=== PATIENT | female | born 1995 | race Caucasian/White ===

== ENCOUNTER 2019-07-09 08:06 | Emergency (ER) | payer OTHER ==
--- NOTE | 2019-07-09 08:59 | ED Physician Documentation ---
PD HPI HEADACHE - Stated complaint Stated Complaint: GUILLEN - Chief complaint Chief Complaint: Neuro - History obtained from History obtained from: Patient - History of Present Illness Timing - onset: How many days ago (4) Timing - duration: Days (4) Timing - details: Gradual onset, Still present, Waxing and waning Worst headache ever?: No: Worst headache ever? Location: Front Quality: Aching Associated symptoms: Nausea. No: Fever, Stiff neck, Vomiting, Vision changes Improved by: No: Rest, Meds (tylenol) Worsened by: No: Light, Noise Contributing factors: No: Hypertension, Recent illness, Trauma Similar symptoms before: No diagnosis (had some headaches during her first . No history of migraines per se.) Recently seen: Clinic (normal visit last week) Review of Systems Constitutional: denies: Fever, Myalgias Eyes: denies: Decreased vision, Photophobia Nose: reports: Sinus pressure / pain (some feeling of sinus pressure; no nasal drainage.). denies: Rhinorrhea / runny nose, Congestion Throat: denies: Sore throat Respiratory: denies: Cough GI: reports: Nausea. denies: Abdominal Pain, Vomiting, Diarrhea : denies: Dysuria, Discharge, Vaginal bleeding Musculoskeletal: denies: Neck pain, Back pain Neurologic: denies: Focal weakness, Numbness, Near syncope, Altered mental status PD PAST MEDICAL HISTORY - Past Medical History Cardiovascular: None Respiratory: None Neuro: None - Present Medications Home Medications: Ambulatory Orders Medication Instructions Recorded Confirmed Cetirizine [ZyrTEC] 10 mg PO DAILY #10 tablet 07/09/19 Hydrocodone/Acetaminophen [[place] 1 each PO Q6H PRN #10 tablet 07/09/19 5-325 Tablet] Naproxen 375 mg PO BID #14 tablet 07/09/19 Ondansetron Odt [Zofran] 4 mg TL Q6H PRN #10 tablet 07/09/19 dexAMETHasone [Decadron] 4 mg PO DAILY #5 tablet 07/09/19 - Allergies Allergies/Adverse Reactions: Allergies Allergy/AdvReac Type Severity Reaction Status Date / Time No Known Drug Allergies Allergy Verified 07/09/19 08:23 - Social History Does the pt smoke?: No Smoking Status: Never smoker Does the pt drink ETOH?: No Does the pt have substance abuse?: No PD ED PE NORMAL - Vitals Vital signs reviewed: Yes - General General: Alert and oriented X 3, No acute distress, Well developed/nourished - HEENT HEENT: Atraumatic, PERRL, EOMI, Ears normal, Pharynx benign - Neck Neck: Supple, no meningeal sign, No adenopathy - Cardiac Cardiac: RRR, No murmur - Respiratory Respiratory: Clear bilaterally - Abdomen Abdomen: Soft, Non tender - Derm Derm: Normal color, Warm and dry - Extremities Extremities: Normal ROM s pain - Neuro Neuro: Alert and oriented X 3, crosscutter 2-12 intact, No motor deficit, No sensory deficit, Normal speech Eye Opening: Spontaneous Motor: Obeys Commands Verbal: Oriented GCS Score: 15 Results - Vitals Vitals: Vital Signs - 24 hr 07/09/19 07/09/19 07/09/19 08:23 10:39 12:35 Temperature 37.1 C 37.0 C Heart Rate 108 H 94 104 H Respiratory 16 18 15 Rate Blood Pressure 132/78 H 111/71 119/76 O2 Saturation 98 99 97 Oxygen O2 Source Room air - Labs Labs: Laboratory Tests 07/09/19 07/09/19 07/09/19 10:20 10:20 11:00 WBC 7.2 RBC 4.05 L Hgb 11.7 L Hct 35.9 L MCV 88.6 MCH 28.9 MCHC 32.6 RDW 13.6 Plt Count 188 MPV 10.5 Neut # (Auto) 5.0 Lymph # (Auto) 1.5 [place] # (Auto) 0.5 Eos # (Auto) 0.2 Baso # (Auto) 0.0 Absolute Nucleated RBC 0.00 Nucleated RBC % 0.0 Sodium 136 Potassium 3.7 Chloride 106 Carbon Dioxide 22 Anion Gap 8.0 BUN 10 Creatinine 0.4 Estimated GFR (MDRD) 200 Glucose 90 POC Whole Bld Glucose Calcium 8.8 Total Bilirubin 0.5 AST 16 ALT 12 Alkaline Phosphatase 62 Total Protein 6.4 L Albumin 3.0 L Globulin 3.4 Albumin/Globulin Ratio 0.9 L Lipase 29 Urine Color YELLOW Urine Clarity CLEAR Urine pH 7.0 Ur Specific [place] 1.015 Urine Protein NEGATIVE Urine Glucose (UA) NEGATIVE Urine Ketones NEGATIVE Urine Occult Blood NEGATIVE Urine Nitrite NEGATIVE Urine Bilirubin NEGATIVE Urine Urobilinogen 0.2 (NORMAL) Ur Leukocyte Esterase NEGATIVE Ur Microscopic Review NOT INDICATED Urine Culture Comments NOT INDICATED 07/09/19 11:06 WBC RBC Hgb Hct MCV MCH MCHC RDW Plt Count MPV Neut # (Auto) Lymph # (Auto) [place] # (Auto) Eos # (Auto) Baso # (Auto) Absolute Nucleated RBC Nucleated RBC % Sodium Potassium Chloride Carbon Dioxide Anion Gap BUN Creatinine Estimated GFR (MDRD) Glucose POC Whole Bld Glucose 78 Calcium Total Bilirubin AST ALT Alkaline Phosphatase Total Protein Albumin Globulin Albumin/Globulin Ratio Lipase Urine Color Urine Clarity Urine pH Ur Specific [place] Urine Protein Urine Glucose (UA) Urine Ketones Urine Occult Blood Urine Nitrite Urine Bilirubin Urine Urobilinogen Ur Leukocyte Esterase Ur Microscopic Review Urine Culture Comments PD MEDICAL DECISION MAKING - ED course Complexity details: re-evaluated patient (Only mild improvement with Phenergan and Toradol, but still consider migraine. Otherwise possible sinus. At this point in , could still do NSAIDs for short period as well as pain meds. ), considered differential (no focal neuro deficits, no fever, symptoms mainly frontal sinus area. She is at 28 weeks gestation, so will check LFTs, [place]. Has normal BP on recheck. ), d/w patient Departure - Departure Disposition: 01 Home, Self Care Clinical Impression: Frontal headache Condition: Stable Record reviewed to determine appropriate education?: Yes Instructions: ED Cephalgia Unspecified Follow-Up: LILIYA OAKLEY MD [Primary Care Provider] - Prescriptions: Cetirizine [ZyrTEC] 10 mg PO DAILY #10 tablet dexAMETHasone [Decadron] 4 mg PO DAILY #5 tablet Hydrocodone/Acetaminophen [[place] 5-325 Tablet] 1 each PO Q6H PRN #10 tablet PRN Reason: Pain Naproxen 375 mg PO BID #14 tablet Ondansetron Odt [Zofran] 4 mg TL Q6H PRN #10 tablet PRN Reason: Nausea / Vomiting Comments: I do not get the sense of a more serious cause for this. We will see if this is a sinus headache and treated with some anti-inflammatories and antihistamine. Stay well-hydrated and use ondansetron if needed for nausea. Add Tylenol or hydrocodone if needed for pain in the short-term. Follow-up with your primary care if not improved over the next few days and return sooner if worsening or other symptoms associated. Discharge Date/Time: 07/09/19 12:36
[2019-07-09] MEDS ORDERED: KETOROLAC 15 MG/ML VIAL IVP STA (09:34)
[2019-07-09] MEDS ORDERED: DEXAMETHASONE 10 MG/ML VIAL IVP STA (09:34)
[2019-07-09] MEDS ORDERED: CETIRIZINE 10 MG TABLET PO STA (09:34)
[2019-07-09] MEDS ORDERED: PROMETHAZINE INJ 6.25 MG in SODIUM CHLORIDE 0.9% 50 ML IV STA (09:35)
[2019-07-09 10:41] LABS: BASOPHILS % (AUTO) 0.3 %; EOSINOPHILS # (AUTO) 0.2 10^3/uL (0.0-0.7); EOSINOPHILS % (AUTO) 2.5 %; HGB - HEMOGLOBIN 11.7 g/dL (12.0-16.0); LYMPHOCYTES # (AUTO) 1.5 10^3/uL (1.5-3.5); LYMPHOCYTES % (AUTO) 20.7 %; MEAN CORPUSCULAR HEMOGLOBIN 28.9 pg (27.0-31.0); MEAN CORPUSCULAR HGB CONC 32.6 g/dL (32.0-36.0); MEAN CORPUSCULAR VOLUME 88.6 fL (81.0-99.0); MEAN PLATELET VOLUME 10.5 fL (7.9-10.8); MONOCYTES # (AUTO) 0.5 10^3/uL (0.0-1.0); MONOCYTES % (AUTO) 6.9 %; NEUTROPHILS % (AUTO) 68.8 %; PLT - PLATELET COUNT 188 10^3/uL (130-450); RED BLOOD COUNT 4.05 10^6/uL (4.20-5.40); RED CELL DISTRIBUTION WIDTH 13.6 % (12.0-15.0); WHITE BLOOD COUNT 7.2 x10^3/uL (4.8-10.8)
[2019-07-09 10:55] LABS: ALBUMIN/GLOBULIN RATIO 0.9 (1.0-2.2); BILIRUBIN,TOTAL 0.5 mg/dL (0.2-1.0); CALCIUM 8.8 mg/dL (8.5-10.3); CREATININE 0.4 mg/dL (0.4-1.0); TOTAL PROTEIN 6.4 g/dL (6.7-8.2)
[2019-07-09 11:19] LABS: BILIRUBIN,URINE NEGATIVE (NEGATIVE); GLUCOSE, URINE (UA) NEGATIVE (NEGATIVE); KETONES,URINE (UA) NEGATIVE (NEGATIVE); LEUKOCYTE ESTERASE, URINE NEGATIVE (NEGATIVE); NITRITE,URINE NEGATIVE (NEGATIVE); OCCULT BLOOD,URINE NEGATIVE (NEGATIVE); PROTEIN,URINE NEGATIVE (NEGATIVE); UROBILINOGEN,URINE 0.2 (NORMAL) E.U./dL (NORMAL)
[2019-07-09] MEDS ORDERED: ACETAMINOPHEN 1,000 MG/100 ML 100 ML IV STA (11:19)
[2019-07-09] MEDS ORDERED: SODIUM CHLORIDE 0.9% 1,000 ML IV ONE (11:19)
[2019-07-09 11:21] LABS: CLARITY,URINE CLEAR (CLEAR)
[2019-07-09 12:36] VITALS: BP 119/76
--- NOTE | 2019-07-09 20:39 | PROCEDURE REPORT ---
- HPI Diagnosis/Indication for NST: Other (Seen in ED) Current EDU 09/26/19 Gestation 28 Weeks and 5 Days 2 Para 1 Vital Signs Temperature 98.7 F 07/09/19 08:23 Heart Rate 108 H 07/09/19 08:23 Respiratory Rate 16 07/09/19 08:23 Blood Pressure 132/78 H 07/09/19 08:23 O2 Saturation 98 07/09/19 08:23 Temperature 98.6 F 07/09/19 12:35 Heart Rate 104 H 07/09/19 12:35 Respiratory Rate 15 07/09/19 12:35 Blood Pressure 119/76 07/09/19 12:35 O2 Saturation 97 07/09/19 12:35 - NST Procedure NST Procedure Start Date 07/09/19 Start Time 08:40 Stop Time 09:02 Vibroacoustic Stimulation Used No Patient States Movement Yes EFM 145 mod [place] 10x10 accels no decels TOCO: quiet - Results and Plan Findings/Impression: Appropriate for gestational age Plan: Presented to ED NST performed to assess well being Monitoring AGA Discharge per ED assessment
== END 2019-07-09 12:36 | disposition home or self-care (01) ==
LOC: ED 08:06
DX: O99.89 Other specified diseases and conditions complicating pregnancy, childbirth and the puerperium (principal); R51 Headache; Z3A.28 28 weeks gestation of pregnancy
CPT/HCPCS: 36415; 80053; 81003; 83690; 85025; 96365; 96367; 96375; 99284; 99285; A9270; J0131; J7040; 81001; 87086

== ENCOUNTER 2019-08-26 08:31 | Outpatient (CLI) | payer OTHER ==
[2019-08-26 08:53] VITALS: BP 125/79
[2019-08-26 09:18] LABS: BASOPHILS % (AUTO) 0.5 %; EOSINOPHILS # (AUTO) 0.2 10^3/uL (0.0-0.7); EOSINOPHILS % (AUTO) 1.8 %; HGB - HEMOGLOBIN 11.7 g/dL (12.0-16.0); LYMPHOCYTES % (AUTO) 23.4 %; MEAN CORPUSCULAR HEMOGLOBIN 26.8 pg (27.0-31.0); MEAN CORPUSCULAR HGB CONC 31.5 g/dL (32.0-36.0); MEAN CORPUSCULAR VOLUME 85.1 fL (81.0-99.0); MEAN PLATELET VOLUME 10.6 fL (7.9-10.8); MONOCYTES # (AUTO) 0.5 10^3/uL (0.0-1.0); MONOCYTES % (AUTO) 6.2 %; NEUTROPHILS # (AUTO) 5.6 10^3/uL (1.5-6.6); NEUTROPHILS % (AUTO) 67.1 %; PLT - PLATELET COUNT 174 10^3/uL (130-450); RED BLOOD COUNT 4.36 10^6/uL (4.20-5.40); RED CELL DISTRIBUTION WIDTH 14.5 % (12.0-15.0); WHITE BLOOD COUNT 8.4 x10^3/uL (4.8-10.8)
[2019-08-26 09:27] LABS: BILIRUBIN,URINE NEGATIVE (NEGATIVE); GLUCOSE, URINE (UA) NEGATIVE (NEGATIVE); KETONES,URINE (UA) NEGATIVE (NEGATIVE); LEUKOCYTE ESTERASE, URINE NEGATIVE (NEGATIVE); NITRITE,URINE NEGATIVE (NEGATIVE); OCCULT BLOOD,URINE NEGATIVE (NEGATIVE); PROTEIN,URINE NEGATIVE (NEGATIVE); UROBILINOGEN,URINE 0.2 (NORMAL) E.U./dL (NORMAL)
[2019-08-26 09:31] LABS: CLARITY,URINE CLEAR (CLEAR)
[2019-08-26] MEDS ORDERED: MAG HYDROX/AL HYDROX/SIMETH 30 ML UDC PO PRN (09:32)
[2019-08-26] MEDS ORDERED: ACETAMINOPHEN 500 MG TABLET PO PRN (09:38)
[2019-08-26 09:41] LABS: BACTERIA,URINE Rare /HPF (None Seen); MUCUS,URINE Few Strands; RBC,URINE 0-5 /HPF (0-5); SQUAMOUS EPITHELIAL CELL,UR FEW Squamous (<= Few)
--- NOTE | 2019-08-26 09:55 | PROCEDURE REPORT ---
- HPI Diagnosis/Indication for NST: Other (pupper abdominal pain) Current EDU 09/26/19 Gestation 35 Weeks and 4 Days 2 Para 1 Vital Signs Temperature 36.5 C 08/26/19 08:45 Heart Rate 127 H 08/26/19 08:45 Respiratory Rate 08/26/19 08:45 Blood Pressure 125/79 08/26/19 08:45 O2 Saturation 100 08/26/19 08:45 Temperature 36.5 C 08/26/19 08:45 Heart Rate 127 H 08/26/19 08:45 Respiratory Rate 08/26/19 08:45 Blood Pressure 125/79 08/26/19 08:45 O2 Saturation 100 08/26/19 08:45 - NST Procedure NST Procedure Start Time 08:40 Stop Time 09:02 - Results and Plan Findings/Impression: baseline 130 reactive no contractions Plan: continue NST's
--- NOTE | 2019-08-28 11:57 | PREOP HISTORY & PHYSICAL ---
DATE OF SERVICE: Physician: Joce Myers MD IDENTIFICATION: The patient is a 23-year-old G2, P1 female who is 35.4 weeks EGA. She has had a pre vious section. CHIEF COMPLAINT: Upper abdominal pain and lower abdominal pain as well as headache. HISTORY OF PRESENT ILLNESS: The patient states at 11:30 last night, she developed upper abdominal pa in. This was constant and crampy in nature. She is having good bowel motion. She denied diarrhea. She has had some low-grade nausea, which she has had through her entire . She has some occ ipital headache, which she states she has had intermittently through her entire . She denie s any spots in front of her eyes or scotoma. She denies any relationship to diet to her upper abdomi nal pain. She also has some pain in the lower abdomen in the suprapubic region. She has had a previ ous section. She denies any pain or burning on urination. PAST MEDICAL HISTORY: Unremarkable. PAST SURGICAL HISTORY: Positive for section x1. She has also had a tonsillectomy and wisdo m teeth removed. ALLERGIES: NONE KNOWN. CURRENT MEDICATIONS: vitamins. HABITS: The patient denies use of alcohol, tobacco, street or addictive drugs. 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 PHYSICAL EXAMINATION: GENERAL: The patient is a well-developed, well-nourished white female. She appears to be in no acut e distress at this time. She converses easily. She smiles appropriately. HEENT: Pupils are equal and round. Extraocular muscles are intact. Thyroid is not palpably enlarge d. HEART: Regular rate and rhythm without murmurs. LUNGS: Lung mitchell are clear without rales or wheezes. BACK: No spinal or CVA tenderness noted. ABDOMEN: Nontender throughout, above the uterus, the uterus, as well as the suprapubic area. She do es note that there is pain right below the xiphoid as well as the suprapubic area, but denies tendern ess associated with this. LABORATORY DATA: White count 8.4, hemoglobin 11.7, hematocrit 37.8, platelets 174. Urine is complet ellie negative at this time. She has few squamous. She is negative for nitrites or leukocytes. IMPRESSION: 1. A 23-year-old 2, para 1, 35.4 weeks with previous section. 2. Abdominal pain of unknown etiology. We will try Maalox on her to see if this does not improve he r pain at this time. In view of the fact that her blood pressures were normal and that she has no vi sual difficulty, my impression is that this is not preeclampsia. No signs of abruption. PLAN: At this point, we will allow the patient to go home. We will have her continue on her antidia betic diet and have her follow up in the clinic as routine. TD: 08/26/2019 09:49
== END 2019-08-26 10:32 | disposition home or self-care (01) ==
LOC: FBP 08:31 → WFO 08:31
PROVIDERS: ATTEND Obstetrics & Gynecology
DX: R51 Headache (principal); Z3A.35 35 weeks gestation of pregnancy
CPT/HCPCS: 36415; 81001; 85025; 99213; A9270; 87086

== ENCOUNTER 2019-08-31 08:00 | Outpatient (CLI) | payer OTHER ==
[2019-09-01 20:50] LABS: TRICHOMONAS VAGINALIS DNA NEGATIVE (NEGATIVE)
== END 2019-08-31 23:59 | disposition home or self-care (01) ==
LOC: LAB.R 08:00
PROVIDERS: ATTEND Obstetrics & Gynecology
DX: Z36.85 Encounter for antenatal screening for Streptococcus B (principal)
CPT/HCPCS: 87491; 87591; 87661; 87797

== ENCOUNTER 2019-09-04 16:07 | Outpatient (CLI) | payer OTHER ==
--- NOTE | 2019-09-06 00:33 | Ultrasound Report ---
Reason: GESTATIONAL DIABETES Procedure Date: 09/04/2019 Accession Number: [id number] / [id number] Procedure: US - OB F/U or Repeat CPT Code: Final Report FULL RESULT: EXAM: LIMITED OBSTETRICAL ULTRASOUND EXAM DATE: 09/04/2019 04:31 PM. CLINICAL HISTORY: Gestational diabetes. growth assessment. COMPARISON: None. TECHNIQUE: Real-time sonographic evaluation of the fetus performed by the casting and pasting supervisor. Multiple sales representative supervisor static images were saved for review. DATING: Established EGA 36 weeks 6 days with MELLISSA 09/25/2019. GENERAL EVALUATION Barron . Cardiac activity: 162 beats per minute. movement: Visualized. Presentation: Cephalic. Placenta: Posterior position. Amniotic fluid: Normal. SHAZIA 16 cm. MVP 4.7 cm. BPD: 9.5 cm, 38 weeks 4 days HC: 33.5 cm, 38 weeks 3 days AC: 30.6 cm, 34 weeks 4 days FL: 7.1 cm, 36 weeks 3 days EFW: 2784 grams EFW%: 28.7 AUA: 37 weeks 0 days MELLISSA: 09/25/2019 IMPRESSION: 1. Barron live intrauterine with gestational age 37 weeks 0 days. This is concordant with prior established due date. 2. Normal SHAZIA. RADIA
== END 2019-09-04 16:08 | disposition home or self-care (01) ==
LOC: DI 16:07
PROVIDERS: ATTEND Obstetrics & Gynecology
DX: O24.419 Gestational diabetes mellitus in pregnancy, unspecified control (principal); O34.211 Maternal care for low transverse scar from previous cesarean delivery; Z3A.37 37 weeks gestation of pregnancy
CPT/HCPCS: 76816

== ENCOUNTER 2019-09-15 19:11 | Outpatient (CLI) | payer OTHER ==
[2019-09-15 20:07] VITALS: BP 126/77
--- NOTE | 2019-09-16 20:44 | PROCEDURE REPORT ---
- HPI Diagnosis/Indication for NST: Other (contractions) Current EDU 09/26/19 Gestation 38 Weeks and 3 Days 2 Para 1 Vital Signs Temperature 97.2 F L 09/15/19 19:24 Heart Rate 97 09/15/19 19:24 Respiratory Rate 16 09/15/19 19:24 Blood Pressure 126/83 H 09/15/19 19:24 O2 Saturation 99 09/15/19 19:24 Temperature 97.2 F L 09/15/19 19:24 Heart Rate 97 09/15/19 20:00 Respiratory Rate 18 09/15/19 20:00 Blood Pressure 126/77 09/15/19 20:00 O2 Saturation 99 09/15/19 19:24 - NST Procedure NST Procedure Start Date 09/15/19 Start Time 19:17 Stop Time 20:15 Vibroacoustic Stimulation Used No Patient States Movement Yes - Results and Plan Findings/Impression: Category 1 NST Rare UC SVE unchanged over 2h.
== END 2019-09-15 22:20 | disposition home or self-care (01) ==
LOC: WFO 19:11 → FBP 19:13 → WFO 22:20
PROVIDERS: ATTEND Obstetrics & Gynecology
DX: O47.1 False labor at or after 37 completed weeks of gestation (principal); Z3A.38 38 weeks gestation of pregnancy
CPT/HCPCS: 59025; 99213

== ENCOUNTER 2019-09-22 11:21 | Outpatient (CLI) | payer OTHER ==
[2019-09-22 11:44] LABS: BASOPHILS % (AUTO) 0.5 %; EOSINOPHILS # (AUTO) 0.1 10^3/uL (0.0-0.7); EOSINOPHILS % (AUTO) 1.6 %; HGB - HEMOGLOBIN 11.1 g/dL (12.0-16.0); LYMPHOCYTES # (AUTO) 2.2 10^3/uL (1.5-3.5); LYMPHOCYTES % (AUTO) 27.2 %; MEAN CORPUSCULAR HEMOGLOBIN 25.6 pg (27.0-31.0); MEAN CORPUSCULAR HGB CONC 30.2 g/dL (32.0-36.0); MEAN CORPUSCULAR VOLUME 84.6 fL (81.0-99.0); MEAN PLATELET VOLUME 10.8 fL (7.9-10.8); MONOCYTES # (AUTO) 0.5 10^3/uL (0.0-1.0); MONOCYTES % (AUTO) 6.7 %; NEUTROPHILS # (AUTO) 5.2 10^3/uL (1.5-6.6); NEUTROPHILS % (AUTO) 63.4 %; PLT - PLATELET COUNT 182 10^3/uL (130-450); RED BLOOD COUNT 4.34 10^6/uL (4.20-5.40); RED CELL DISTRIBUTION WIDTH 14.6 % (12.0-15.0); WHITE BLOOD COUNT 8.1 x10^3/uL (4.8-10.8)
== END 2019-09-22 11:22 | disposition home or self-care (01) ==
LOC: LAB 11:21
PROVIDERS: ATTEND Obstetrics & Gynecology
DX: Z01.812 Encounter for preprocedural laboratory examination (principal); O34.211 Maternal care for low transverse scar from previous cesarean delivery; Z3A.00 Weeks of gestation of pregnancy not specified
CPT/HCPCS: 36415; 85025

== ENCOUNTER 2019-09-23 06:59 | Inpatient (IN) | payer OTHER ==
[2019-09-23] MEDS ORDERED: LACTATED RINGERS 1,000 ML IV ONE ×4 (07:54→11:00)
[2019-09-23 08:24] LABS: BASOPHILS % (AUTO) 0.4 %; EOSINOPHILS # (AUTO) 0.1 10^3/uL (0.0-0.7); EOSINOPHILS % (AUTO) 1.8 %; HGB - HEMOGLOBIN 11.8 g/dL (12.0-16.0); LYMPHOCYTES # (AUTO) 2.3 10^3/uL (1.5-3.5); LYMPHOCYTES % (AUTO) 30.8 %; MEAN CORPUSCULAR HGB CONC 31.8 g/dL (32.0-36.0); MEAN CORPUSCULAR VOLUME 84.9 fL (81.0-99.0); MEAN PLATELET VOLUME 11.7 fL (7.9-10.8); MONOCYTES # (AUTO) 0.6 10^3/uL (0.0-1.0); MONOCYTES % (AUTO) 7.6 %; NEUTROPHILS # (AUTO) 4.4 10^3/uL (1.5-6.6); NEUTROPHILS % (AUTO) 58.6 %; PLT - PLATELET COUNT 188 10^3/uL (130-450); RED BLOOD COUNT 4.37 10^6/uL (4.20-5.40); RED CELL DISTRIBUTION WIDTH 14.6 % (12.0-15.0); WHITE BLOOD COUNT 7.6 x10^3/uL (4.8-10.8)
[2019-09-23] MEDS ORDERED: ceFAZolin 2 GM in SODIUM CHLORIDE 0.9% 100ML 100 ML IV ONE (08:30)
--- NOTE | 2019-09-23 09:07 | ANESTHESIA ---
Pre-Anesthesia VS, & Labs - Diagnosis Previous C section - Procedure Repeat C section Vital Signs: Temp Pulse Resp BP Pulse Ox 36.8 C 105 H 16 115/74 100 09/23/19 08:00 09/23/19 08:00 09/23/19 08:00 09/23/19 08:00 09/23/19 08:00 Height 5 ft 7 in Weight (kg) 90.265 kg Body Mass Index 29.1 - NPO >8 hours - Is Patient ?: Yes - Lab Results Current Lab Results: Laboratory Tests 09/23/19 08:38: POC Whole Bld Glucose 71 09/23/19 07:47: WBC 7.6, RBC 4.37, Hgb 11.8 L, Hct 37.1, MCV 84.9, MCH 27.0, MCHC 31.8 L, RDW 14.6, Plt Count 188, MPV 11.7 H, Neut # (Auto) 4.4, Lymph # (Auto) 2.3, [place] # (Auto) 0.6, Eos # (Auto) 0.1, Baso # (Auto) 0.0, Absolute Nucleated RBC 0.00, Nucleated RBC % 0.0 Fish Bones: 09/23/19 07:47 Home Medications and Allergies Allergies/Adverse Reactions: Allergies Allergy/AdvReac Type Severity Reaction Status Date / Time No Known Drug Allergies Allergy Verified 07/09/19 08:23 Anes History & Medical History - Anesthetic History Anesthesia Complications: reports: No previous complications Family history of Anesthesia Complications: Denies Family history of Malignant Hyperthermia: Denies - Medical History Cardiovascular: reports: None Pulmonary: reports: None Gastrointestinal: reports: Other ( induced acid reflux) Urinary: reports: None Neuro: reports: None Musculoskeletal: reports: None Endocrine/Autoimmune: reports: Other (Gestational diabetes) Blood Disorders: reports: None Skin: reports: Other (Acne) Smoking Status: Never smoker Psychosocial: reports: No issues indicated Exam General: Alert, Oriented x3, Cooperative Dental: WNL Mouth Opening: Greater than 4 Fingerbreadths Neck Mobility: Normal Mallampati classification: I Thyromental Distance: greater than 6 cm Neurological: Normal speech Mental/Cognitive Status: Alert/Oriented X3 Cognitive Status: Within normal limits Plan Anesthesia Type: Spinal Consent for Procedure(s) Verified and Reviewed: Yes Code Status: Attempt Resuscitation ASA classification: 2-Mild systemic disease Is this case an emergency?: No
[2019-09-23] MEDS ORDERED: OXYTOCIN 10 UNIT/ML VIAL ONE (10:19)
[2019-09-23] MEDS ORDERED: SODIUM CHLORIDE 0.9% MINIBAG 100 ML IV ONE (10:19)
[2019-09-23] MEDS ORDERED: CITRIC ACID/SODIUM CITRATE 15 ML UDC PO ONE (10:32)
[2019-09-23] MEDS ORDERED: BUPIVACAINE 0.25% PF 30 ML VIAL SUBQ ONE (11:41)
[2019-09-23] MEDS ORDERED: BUPIVACAINE 0.25% PF 30 ML VIAL ONE (11:43)
[2019-09-23] MEDS ORDERED: SODIUM CHLORIDE FLUSH 0.9% 10 ML SYRINGE IVP PRN (12:03)
[2019-09-23] MEDS ORDERED: CARBOPROST TROMETHAMINE 250 MCG/ML AMP IM ONE (12:03)
[2019-09-23] MEDS ORDERED: oxyCODONE 5 MG TABLET PO PRN (12:03)
[2019-09-23] MEDS ORDERED: ONDANSETRON 4 MG/2 ML VIAL IVP PRN (12:03)
[2019-09-23] MEDS ORDERED: METHYLERGONOVINE 0.2 MG/ML AMP IM PRN (12:03)
[2019-09-23] MEDS ORDERED: OXYTOCIN/SODIUM CHLORIDE 500 ML IV PRN (12:03)
[2019-09-23] MEDS ORDERED: diphenhydrAMINE 25 MG CAPSULE PO PRN (12:03)
--- NOTE | 2019-09-23 12:11 | OPERATIVE REPORT ---
Operative Report - General Admit Date: 09/23/19 Procedure Date: 09/23/19 Planned Procedure: RLTC/S Procedure Performed: RLTC/S Post Op Diagnosis: 39 weeks - Procedure Note Primary Surgeon: Joce Myers MD Secondary Surgeon: Paul Johnson MD Anesthesia Provider: Brigido Loo CRNA Anesthesia Technique: Spinal IV Fluids (mL): 1,100 Estimated Blood Loss (mL): 600 Urine Output (mL): 50 Complications: None
--- NOTE | 2019-09-23 13:18 | OPERATIVE REPORT ---
DATE OF SERVICE: 09/23/2019 Physician: Joce Myers MD PREOPERATIVE DIAGNOSES 1. 39 weeks. 2. Previous section. POSTOPERATIVE DIAGNOSES 1. 39 weeks. 2. Previous section. PROCEDURE: Repeat low transverse section. SURGEON: Joce Myers MD MARZIPAN MAKER: Helga Johnson MD ANESTHESIA PROVIDER: Demetrice Loo CRNA. ANESTHETIC: Spinal. ESTIMATED BLOOD LOSS: 600 mL IV FLUIDS: 1200 mL URINE OUTPUT: 50 mL FINDINGS: Upon entering the abdominal cavity, there was evidence of a live infant who was vertex pre sentation. Amniotic fluid was clear. Tubes and ovaries appeared to be free of any disease. PROCEDURE IN DETAIL: Following adequate spinal anesthesia, patient was placed in supine position wit h a roll under the right hip. At this point, a Villeda catheter was placed under sterile conditions. She was then prepped and draped in the usual fashion. Timeout was then performed, at which time the patient was identified, and concerns addressed. The procedure was then commenced. At this time, a # 10 blade was used to incise over the previous Pfannenstiel incision, carried down to the fascia. The fascia was incised transversely then using both blunt and sharp dissection was freed from rectus abd ominis. Hemostasis was accomplished on the way and using electrocautery. The peritoneum was entered high. Care was taken to avoid any injury to bowel or bladder. The incision was carried inferiorly. Then, utilizing Metzenbaum scissors, bladder flap was then developed using both blunt and sharp dis section. At this point, a low transverse uterine incision was accomplished using a #10 blade, bandag e scissors and finger spread technique. The head of the infant was noted to be left transverse, it w as lifted out of the pelvis. The oropharynx was bulb suctioned. There was a simple nuchal cord, whi ch was reduced. At this time, the remainder of the was delivered without difficulty. The inf ant cried and was vigorous at this time. The cord was doubly clamped, divided, and the infant was stevenson nded to the nursery team that was standing by. Cord blood samples were obtained and sent for evaluat ion. At this point, the placenta was manually delivered. The uterus was exteriorized, wrapped in a moist lap and cleansed the internal portion with dry lap. There was no evidence of any retained plac ental or amniotic tissues. The incision was then closed using a running locking suture with #0 Vicry l with an imbricating layer of #0 Vicryl. Good hemostasis was observed. The uterus was tipped forwa rd and the cul-de-sac was suctioned clear of any clot. The estimated blood loss was then ascertained at this time at 600 mL. The cul-de-sac was irrigated with copious amounts of sterile saline and the uterus was delivered back in the abdominal cavity. The gutters were likewise irrigated with saline. The incision was reinspected. There was no evidence of any bleeding. The peritoneum was closed ut ilizing 2-0 Vicryl. The rectus was reapproximated with [id number] of #0 Vicryl. The rectus wa s inspected for bleeding and treated with electrocautery. There was an area of bleeding in the linea alba superiorly. This was treated with electrocautery and there was evidence of good hemostasis. T he fascia was then closed utilizing looped PDS in a running fashion. Subcutaneous tissue was closed utilizing 2-0 Vicryl and the incision itself was closed using 4-0 Monocryl subcuticular. Wound VAC w as then placed without difficulty. The uterus was then expressed and there was no further blood or c lot noted. Sponge and needle counts were correct at this point. Dr. Johnson was intimately involve d in the procedure with retraction, suture ligation, as well as discussion throughout the case. TD: 09/23/2019 12:21
--- NOTE | 2019-09-23 13:19 | Labor Flowsheet ---
Labor Flowsheet Datetime Report Generated by CPN: 09/23/2019 13:19 Datetime: 09/23/2019 07:28 Pulse: 105 SpO2 (%): 100 Datetime: 09/23/2019 07:21 VITAL SIGNS NBP Sys/[place]/Mean (mmHg): 115 : 74 : 82
[2019-09-23] MEDS: ACETAMINOPHEN 500 MG TABLET PO SCH ×2 (13:57→22:40)
[2019-09-23] MEDS: SIMETHICONE CHEW 80 MG TABLET PO SCH ×2 (15:08→22:40)
[2019-09-23] MEDS: LACTATED RINGERS 1,000 ML IV SCH (15:09)
[2019-09-23] MEDS: SODIUM CHLORIDE FLUSH 0.9% 10 ML SYRINGE IVP SCH (18:29)
[2019-09-23] MEDS: KETOROLAC 30 MG/ML VIAL IVP SCH (18:29)
[2019-09-23] MEDS: DOCUSATE SODIUM 100 MG CAPSULE PO SCH (22:40)
[2019-09-24] MEDS: KETOROLAC 30 MG/ML VIAL IVP SCH ×3 (00:42→14:03)
[2019-09-24] MEDS: SODIUM CHLORIDE FLUSH 0.9% 10 ML SYRINGE IVP SCH ×3 (00:42→14:09)
[2019-09-24 05:53] LABS: BASOPHILS % (AUTO) 0.4 %; EOSINOPHILS # (AUTO) 0.3 10^3/uL (0.0-0.7); LYMPHOCYTES # (AUTO) 2.4 10^3/uL (1.5-3.5); LYMPHOCYTES % (AUTO) 25.2 %; MEAN CORPUSCULAR HEMOGLOBIN 27.3 pg (27.0-31.0); MEAN CORPUSCULAR HGB CONC 30.5 g/dL (32.0-36.0); MEAN CORPUSCULAR VOLUME 89.6 fL (81.0-99.0); MONOCYTES # (AUTO) 0.8 10^3/uL (0.0-1.0); MONOCYTES % (AUTO) 8.5 %; NEUTROPHILS # (AUTO) 5.8 10^3/uL (1.5-6.6); NEUTROPHILS % (AUTO) 62.2 %; PLT - PLATELET COUNT 161 10^3/uL (130-450); RED BLOOD COUNT 4.03 10^6/uL (4.20-5.40); RED CELL DISTRIBUTION WIDTH 14.9 % (12.0-15.0); WHITE BLOOD COUNT 9.4 x10^3/uL (4.8-10.8)
[2019-09-24] MEDS: ACETAMINOPHEN 500 MG TABLET PO SCH ×3 (06:40→22:39)
[2019-09-24] MEDS: SIMETHICONE CHEW 80 MG TABLET PO SCH ×3 (10:16→17:02)
[2019-09-24] MEDS: DOCUSATE SODIUM 100 MG CAPSULE PO SCH (10:16)
--- NOTE | 2019-09-24 13:05 | PROVIDER PROGRESS NOTE ---
Subjective - General Admit Date: 09/23/19 Procedure Date: 09/23/19 Post Op Days: 1 Procedure Performed: RLTC/S - Review of Systems Wound/Incisions: positive: Dressing dry and intact General: positive: No symptoms (Pain 2/10, pasing flatus) Gastrointestinal: positive: Flatus Objective - Patient Data Reviewed Vital Signs: Yes Vital Signs: Vital Signs x48h Temp Pulse Resp BP Pulse Ox 09/24/19 05:19 36.4 C L 69 18 116/79 98 Weight: Weight 09/22/19 09/23/19 09/24/19 23:59 23:59 23:59 Weight (kg) 90.265 kg Intake & Output: Intake and Output Totals x24h 09/22/19 09/23/19 09/24/19 23:59 23:59 23:59 Intake Total 775 1000 Output Total 2415 1625 Balance -1640 -625 - Lab Results Lab Results: 09/24/19 05:25 Other Lab Results: Lab Results x24hrs 09/24/19 Range/Units 05:25 WBC 9.4 (4.8-10.8) x10^3/uL RBC 4.03 L (4.20-5.40) 10^6/uL Hgb 11.0 L (12.0-16.0) g/dL Hct 36.1 L (37.0-47.0) % MCV 89.6 (81.0-99.0) fL MCH 27.3 (27.0-31.0) pg MCHC 30.5 L (32.0-36.0) g/dL RDW 14.9 (12.0-15.0) % Plt Count 161 (130-450) 10^3/uL MPV 12.0 H (7.9-10.8) fL Neut # (Auto) 5.8 (1.5-6.6) 10^3/uL Lymph # (Auto) 2.4 (1.5-3.5) 10^3/uL [place] # (Auto) 0.8 (0.0-1.0) 10^3/uL Eos # (Auto) 0.3 (0.0-0.7) 10^3/uL Baso # (Auto) 0.0 (0.0-0.1) 10^3/uL Absolute Nucleated RBC 0.02 x10^3/uL Nucleated RBC % 0.2 /100WBC - Current Medications Current Medications: Current Medications Generic Name Dose Route Start Last Admin Trade Name Lilibeth PRN Reason Stop Dose Admin Acetaminophen 1,000 mg 09/23/19 13:00 09/24/19 06:40 Tylenol PO 1,000 mg Q8H ANNIE Administration Docusate Sodium 100 mg 09/23/19 21:00 09/24/19 10:16 Colace 100mg Capsule PO 100 mg BID ANNIE Administration Lactated Ringer's 1,000 mls @ 100 mls/hr 09/23/19 13:00 09/24/19 00:45 Lr IV Infused .Q10H ANNIE Infusion Simethicone 80 mg 09/23/19 14:00 09/24/19 10:16 Mylicon PO 80 mg TID ANNIE Administration Sodium Chloride 10 ml 09/23/19 12:03 09/24/19 00:42 Normal Saline Flush 0.9% IVP 10 ml PRN PRN Administration NEEDED PER PROVIDER ORDERS Sodium Chloride 10 ml 09/23/19 17:00 09/24/19 06:41 Normal Saline Flush 0.9% IVP 10 ml 0100,0900,1700 ANNIE Administration - Physical Exam Wound/Incisions: positive: Dressing dry and intact General Appearance: positive: No acute distress, Alert, Mild distress Respiratory: positive: Chest non-tender, No respiratory distress, Breath sounds nml Cardiovascular: positive: Regular rate & rhythm, No murmur, No gallop Abdomen: positive: Non-tender, No organomegaly, Nml bowel sounds, No distention Extremities: positive: Calf tenderness, Marcelo's sign/cords Impression/Plan - Problem List Problem List: POD #1 excellent progress.
[2019-09-24] MEDS ORDERED: KETOROLAC 30 MG/ML VIAL IVP ONE (13:09)
[2019-09-24] MEDS ORDERED: MORPHINE PF 5 MG/10 ML AMP EP ONE (13:09)
[2019-09-24] MEDS ORDERED: ONDANSETRON 4 MG/2 ML VIAL IVP ONE (13:09)
[2019-09-24] MEDS ORDERED: NEOSTIGMINE 1 MG/1 ML 10 ML MDV IVP ONE (13:09)
[2019-09-24] MEDS ORDERED: fentaNYL 100 MCG/2 ML VIAL IVP ONE (13:09)
[2019-09-24] MEDS: IBUPROFEN 600 MG TABLET PO SCH ×2 (13:44→21:52)
[2019-09-24] MEDS: LACTATED RINGERS 1,000 ML IV SCH ×2 (14:03→14:09)
[2019-09-25] MEDS: IBUPROFEN 600 MG TABLET PO SCH ×2 (07:54→14:27)
[2019-09-25] MEDS: SIMETHICONE CHEW 80 MG TABLET PO SCH (07:55)
[2019-09-25] MEDS: ACETAMINOPHEN 500 MG TABLET PO SCH ×2 (07:55→16:49)
[2019-09-25] MEDS: DOCUSATE SODIUM 100 MG CAPSULE PO SCH (07:55)
[2019-09-25 11:55] VITALS: BP 122/76
--- NOTE | 2019-09-25 16:02 | PROVIDER PROGRESS NOTE ---
Subjective - General Admit Date: 09/23/19 Procedure Date: 09/23/19 Post Op Days: 2 Procedure Performed: RLTC/S - Review of Systems Wound/Incisions: positive: Dressing dry and intact (wound Vac working) General: positive: No symptoms (Pain 2/10, pasing flatus, minimal pain) HEENT: positive: No symptoms Pulmonary: positive: No symptoms Cardiovascular: positive: No symptoms Gastrointestinal: positive: No symptoms, Flatus Objective - Patient Data Reviewed Vital Signs: Yes Vital Signs: Vital Signs x48h Temp Pulse Resp BP Pulse Ox 09/25/19 11:55 36.5 C 78 18 122/76 98 Weight: Weight 09/23/19 09/24/19 09/25/19 23:59 23:59 23:59 Weight (kg) 90.265 kg Intake & Output: Intake and Output Totals x24h 09/23/19 09/24/19 09/25/19 23:59 23:59 23:59 Intake Total 775 1000 1000 Output Total 2415 1625 Balance -1640 -625 1000 - Lab Results Lab Results: 09/24/19 05:25 - Current Medications Current Medications: Current Medications Generic Name Dose Route Start Last Admin Trade Name Freq PRN Reason Stop Dose Admin Acetaminophen 1,000 mg 09/23/19 13:00 09/25/19 07:55 Tylenol PO 1,000 mg Q8H ANNIE Administration Docusate Sodium 100 mg 09/23/19 21:00 09/25/19 07:55 Colace 100mg Capsule PO 100 mg BID ANNIE Administration Lactated Ringer's 1,000 mls @ 100 mls/hr 09/23/19 13:00 09/24/19 14:09 Lr IV Not Given .Q10H ANNIE Ibuprofen 600 mg 09/24/19 13:00 09/25/19 14:27 Motrin PO 600 mg Q6H ANNIE Administration Simethicone 80 mg 09/23/19 14:00 09/25/19 07:55 Mylicon PO 80 mg TID ANNIE Administration Sodium Chloride 10 ml 09/23/19 12:03 09/24/19 00:42 Normal Saline Flush 0.9% IVP 10 ml PRN PRN Administration NEEDED PER PROVIDER ORDERS Sodium Chloride 10 ml 09/23/19 17:00 09/24/19 14:09 Normal Saline Flush 0.9% IVP Not Given 0100,0900,1700 ANNIE - Physical Exam Wound/Incisions: positive: Healing well, Dressing dry and intact (wound Vac) General Appearance: positive: No acute distress, Alert Cardiovascular: positive: Regular rate & rhythm, No murmur, No gallop Abdomen: positive: Non-tender, Nml bowel sounds Back: negative: CVA tenderness (R), CVA tenderness (L) Extremities: negative: Calf tenderness, Marcelo's sign/cords Impression/Plan - Problem List Problem List: POD #2 excellent progress. Discharge Meds Motrin 600 Oxycodone Colace RTC one week
--- NOTE | 2019-10-11 19:55 | DISCHARGE SUMMARY ---
Physician: Joce Myers MD DATE OF ADMISSION: 09/23/2019 DATE OF DISCHARGE: 09/25/2019 ADMITTING DIAGNOSES 1. A 23-year-old G2, P1. 2. Previous section. DISCHARGE DIAGNOSES 1. A 23-year-old G2. 2. P1 Previous section. PROCEDURES: Repeat low transverse section. PRESENTING HISTORY: Patient is a 23-year-old G2, P1, who is 39.3 weeks. She had a previous done for arrest of dilatation and is here for a repeat section. LABORATORIES: CBC on admission showed a hemoglobin of 11.8. White count was 7.6. Platelets were 28 8. Post-delivery, she fell to 11.0 hemoglobin, with a platelet count of 161. HOSPITAL COURSE: The patient was admitted and taken to the operating room, at which time a repeat lo w transverse section was performed without incident. She did well postoperatively. Her t and bowel function returned. She is being discharged today. DISCHARGE MEDICATIONS 1. Motrin. 2. Oxycodone. 3. Colace. She is instructed to follow up in the clinic for 1 week. We have discussed the issues of breastfeedi ng, as well as mastitis and the need for contraception. TD: 10/11/2019 16:03
== END 2019-09-25 17:15 | disposition home or self-care (01) | DRG 788 ==
LOC: FBP 06:59 → OBS 10:19
PROVIDERS: ADMIT Obstetrics & Gynecology; ATTEND Obstetrics & Gynecology
PROC: 10D00Z1 Extraction of Products of Conception, Low, Open Approach (ICD-10-PCS; principal; 2019-09-23 10:30)
DX: O34.211 Maternal care for low transverse scar from previous cesarean delivery (principal); O69.81X0 Labor and delivery complicated by cord around neck, without compression, not applicable or unspecified; Z3A.39 39 weeks gestation of pregnancy; Z37.0 Single live birth
CPT/HCPCS: 36415; 85025; 86850; 86900; 86901; A9270; J7120